=== PATIENT | male | born 1995 | race Caucasian/White ===

== ENCOUNTER 2016-11-09 11:02 | Emergency (ER) | payer BC, OTHER ==
[~2016-11-09] VITALS: Ht 182.9 cm; Wt 132.0 kg
[~2016-11-09 11:02] MED LIST: CYCL10TA45 PO; TRAM-25 PO
--- OUTSIDE RECORDS SUMMARY | 2016-11-09 11:10 | XMS REPORT | Continuity of Care Document ---
Author Author [facility] Address Unknown Phone Unavailable Allergies Active Description Code Type Severity Reaction Onset Reported/Identified Relationship to Patient Clinical Status Yes mesalamine [id number] Drug Allergy Severe severe abdomina 05/25/2015 Medications Problems Date Dx Coded Attending Type Code Diagnosis Diagnosed By 05/25/2015 GUANAKITO WILLIS MD Ot M43.6 05/25/2015 GUANAKITO WILLIS MD Ot M54.2 09/01/2015 GUANAKITO WILLIS MD Ot Z53.20 PROC/TRTMT NOT CRD OUT BEC PT DECISION F 09/01/2015 ALEX MCMANUS MD, Ot M54.5 LOW BACK PAIN 09/01/2015 ALEX MCMANUS MD, Ot S80.01XA CONTUSION OF RIGHT KNEE, INITIAL ENCOUNT 09/01/2015 ALEX MCMANUS MD, Ot S80.02XA CONTUSION OF LEFT KNEE, INITIAL ENCOUNTE 09/01/2015 ALEX MCMANUS MD Ot V98.8XXA OTHER SPECIFIED TRANSPORT ACCIDENTS, INI 09/01/2015 ALEX MCMANUS MD, Ot Y92.[address] OF OCCURRENCE OF 09/01/2015 ALEX MCMANUS MD, Ot Y93.89 ACTIVITY, OTHER SPECIFIED 09/01/2015 ALEX MCMANUS MD, Ot Y99.0 CIVILIAN ACTIVITY DONE FOR INCOME OR PAY Procedures Results Encounters ACCT No. Visit Date/Time Discharge Status Pt. Type Provider Facility Loc./Unit Complaint [id number] 09/01/2015 19:01:00 2015 20:39:00 DIS Emergency ALEX MCMANUS MD [facility] ED [id number] 09/01/2015 17:30:00 2015 17:40:00 DIS Emergency GUANAKITO WILLIS MD [facility] ED [id number] 05/25/2015 19:12:00 2014 21:10:00 DIS Emergency ALBA OLIVARES, GUANAKITO [facility] ED [id number] 09/01/2015 19:09:00 ACT Outpatient MARIETTA OLIVARES, ALEX [facility]
--- NOTE | 2016-11-09 11:52 | Diagnostic Imaging Report ---
INDICATION: Chronic pain following an injury sustained one year ago. Symptoms greatest at the gluteal level. FINDINGS: No evidence for avulsion or other fracture pattern. The femoral head maintains normal sphericity and is oriented into the acetabulum. No erosion. No opaque loose body. IMPRESSION: Normal radiographs of the left hip. Dictated by: Dictated on workstation # [id number]
[2016-11-09] MEDS ORDERED: MELO-255 PO (12:04)
[2016-11-09] MEDS ORDERED: TRM50T PO (12:04)
[2016-11-09 12:11] VITALS: BP 178/109
== END 2016-11-09 12:10 | disposition home or self-care (01) ==
LOC: EDUNIT# 11:02 → ED 11:06
DX: M54.32 Sciatica, left side (principal); G57.02 Lesion of sciatic nerve, left lower limb
CPT/HCPCS: 73502; 99282